=== PATIENT | female | born 2000 | race Hispanic/Latino ===

== ENCOUNTER 2021-04-21 09:25 | Emergency (ER) | payer OTHER, SELFPAY ==
--- NOTE | ~2021-04-21 | XR_ITS ---
EXAMINATION: XR chest 2V DATE: 04/21/2021 09:51 INDICATION: Chest pain. TECHNIQUE: PA and lateral views of the chest were obtained. COMPARISON: None FINDINGS: The lungs are clear with no focal airspace opacities, pulmonary edema, pleural effusion or pneumothor ax. The cardiomediastinal silhouette is normal. Visualized bones and soft tissues are unremarkable. IMPRESSION: 1. Normal chest radiograph. Reviewed, dictated and finalized at location A. [employer] SERVICE MANAGER IMPRESSION: 1. Normal chest radiograph.
--- NOTE | 2021-04-21 09:31 | ECG_ITS ---
Measurements Intervals [place] Rate: 67 P: 48 ID: [id number] QRS: 72 QRSD: 78 T: 29 QT: 350 QTc: 370 Interpretive Statements SINUS RHYTHM INCOMPLETE RIGHT BUNDLE BRANCH BLOCK BASELINE ARTIFACT- II, III, AVF BORDERLINE ECG Electronically Signed On 04-21-2021 14:23:24 [employer] by Hola Strange D.O.
[2021-04-21 09:48] VITALS: BP 120/72; PULSE 89; RESP 18; TEMP 36.6; O2SAT 98
--- NOTE | 2021-04-21 09:50 | ED.CHESTPAIN ---
HPI - Chest Pain General Chief Complaint: Chest Pain Stated Complaint: chest pain and arm hurts Time Seen by Provider: 04/21/21 09:34 Source: patient Mode of arrival: ambulatory Limitations: no limitations History of Present Illness HPI narrative: Patient is 20-year-old female presented with chief complaint of left-sided chest pain that began yesterday at 3 PM while she was working. Patient reports that the pain is sharp in nature but waxes and wanes in intensity. Patient reports that when she lays down and rest the pain seems to be better. Patient reports last night she began having pain in her left arm and became more concerned. Patient reported the pain in her arm presents with movement. Patient reports she has not taken any medications to try to alleviate her discomfort. Patient has a history of hypertension, diabetes, MD, stroke, chest trauma. Patient reports having some anxiety in the past. Patient denies chance of . Patient denies tenderness ambulating with MD or stroke. Related Data Home Medications Medication Instructions Recorded Confirmed No Home Medications 04/21/21 04/21/21 Allergies Allergy/AdvReac Type Severity Reaction Status Date / Time No Known Allergies Allergy Verified 04/21/21 09:32 Review of Systems Review of Systems: CONSTITUTIONAL: Denies fever, chills, or sweats. EYES: Denies visual changes, redness, or discharge. ENT: Denies rhinorrhea, congestion, sore throat, or otalgia. CARDIOVASCULAR: Reports chest pain, denies palpitations, or edema. RESPIRATORY: Denies cough or dyspnea. GASTROINTESTINAL: Denies abdominal pain, nausea, vomiting, or diarrhea. GENITOURINARY: Denies dysuria or hematuria. SKIN: Denies rash or itching. MUSCULOSKELETAL: Reports left arm pain denies back pain, joint pain, or myalgia. NEUROLOGIC: Denies headache, numbness, dizziness, or weakness. PSYCHIATRIC: Denies anxiety or depression. Exam Narrative: GENERAL: Well-appearing, well-nourished, and in no acute distress. HEAD: Normocephalic, atraumatic. EYES: PERRLA and EOMI. CHEST: Pain with palpation of left pectoral and shoulder- triggers arm pain, but states chest pain is different. Clear to auscultation. No respiratory distress. No wheezes rales or rhonchi HEART: Regular rate and rhythm. Normal peripheral pulses. EXTREMITIES: Normal range of motion. No edema. SKIN: Warm, dry, no rash. NEURO: No focal deficits. Alert and oriented x3. Speech clear and appropriate. Gait is steady. PSYCH: Normal mood and affect. Course Vital Signs Vital signs: Vital Signs Temperature 97.9 F 04/21/21 09:48 Pulse Rate 89 04/21/21 09:48 Respiratory Rate 18 04/21/21 09:48 Blood Pressure 120/72 04/21/21 09:48 Pulse Oximetry 98 04/21/21 09:48 Temperature 97.9 F 04/21/21 09:48 Pulse Rate 80 04/21/21 13:30 Respiratory Rate 18 04/21/21 13:30 Blood Pressure 103/68 04/21/21 13:30 Pulse Oximetry 99 04/21/21 13:30 MDM - Chest Pain MDM Narrative Medical decision making narrative: Patient is smiling and resting comfortably in the room. She has not had any increases episodes of pain. Patient reports her symptoms have improved. Patient vital signs are stable, lab work is insignificant. Troponin does troponin have been negative. EKG is normal sinus rhythm. Patient's heart score is low. Patient presents patient suggest more of a musculoskeletal component however patient has been instructed to follow-up with primary care to improve investigation. Patient will be discharged for follow-up with her primary care. Patient instructed to return to emergency department she develop any emergent symptoms. Patient states she is ready to be discharged home and denies any other needs or concerns. Differential Diagnosis Differential diagnosis: Likely fracture of rib, pneumothorax, atypical chest pain, st elevation myocardial infarction, costochondritis, chest pain, biliary colic and other (Anxiety) Lab Data
[2021-04-21 09:55] LABS: Basophils Absolute Auto 0.1 K/mm3 (0.0-0.1); Basophils Percent Auto 0.7 % (0.2-1.2); Eosinophils Absolute Auto 0.4 K/mm3 (0-0.3); Eosinophils Percent Auto 4.3 % (0-4.4); Hematocrit 37.1 % (37.0-47.0); Hemoglobin 12.5 g/dL (12.0-15.0); Immature Granulocyte Absolute 0.03 K/mm3 (0.00-0.031); Immature Granulocyte Percent A 0.4 % (0-0.5); Lymphocytes Absolute Auto 3.18 K/mm3 (0.9-3.2); Lymphocytes Percent Auto 39.4 % (18.3-44.2); Mean Corpuscular HGB Conc 33.7 g/dl (32-36); Mean Corpuscular Hemoglobin 27.7 pg (26-34); Mean Corpuscular Volume 82.3 fl (80-100); Mean Platelet Volume 9.3 fl (7.4-10.4); Monocytes Absolute Auto 0.6 K/mm3 (0.1-0.6); Monocytes Percent Auto 6.8 % (2.6-8.5); Neutrophils Absolute Auto 3.9 K/mm3 (1.3-6.7); Neutrophils Percent Auto 48.4 % (45.5-73.1); Platelet Count Result 270 k/mm3 (150-375); Red Blood Count 4.51 M/mm3 (4.2-5.4); Red Cell Distribution Width 12.5 % (11.5-14.5); White Blood Count 8.1 K/mm3 (4.5-10.0)
[2021-04-21 10:00] LABS: Alanine Aminotransferase 13 U/L (4-35); Albumin Level 4.6 g/dL (3.5-5.1); Alkaline Phosphatase 53 U/L (38-126); Anion Gap 9 mmol/L (8-16); Aspartate Amino Transferase 27 U/L (14-36); Bilirubin,Total 0.4 mg/dL (0.2-1.3); Blood Urea Nitrogen 12 mg/dL (7-17); Calcium 9.2 mg/dL (8.4-10.2); Carbon Dioxide 23 mmol/L (22-30); Chloride 104 mmol/L (98-107); Estimated CRCL calculation 91 ml/min; Estimated Glomerular Filt Rate > 60; Glucose 92 mg/dL (65-110); Sodium 136 mmol/L (137-145)
[2021-04-21] MEDS: ASPIRIN 81 MG CHEWABLE TABLET 324 MG PO (10:09)
[2021-04-21 10:11] LABS: Troponin I < 0.012 ng/mL (0.000-0.034)
[2021-04-21 13:19] LABS: Troponin I < 0.012 ng/mL (0.000-0.034)
[2021-04-21] MEDS: KETOROLAC 15 MG/ML VIAL (*BKC) IV PUSH (13:23)
[2021-04-21 13:30] VITALS: BP 103/68; PULSE 80; RESP 18; O2SAT 99
== END 2021-04-21 13:33 | disposition home or self-care (01) ==
PROVIDERS: Emergency Provider Emergency Medicine; PCP Pediatrics
DX: R07.89 Other chest pain (principal); I45.10 Unspecified right bundle-branch block
CPT/HCPCS: 36415; 71046; 80053; 81025; 84484; 85025; 93005; 96374; 99284; A9270; J1885

== ENCOUNTER 2022-05-20 16:09 | Emergency (ER) | payer OTHER, SELFPAY ==
[2022-05-20 16:18] VITALS: BP 119/71; PULSE 110; RESP 20; TEMP 36.9; O2SAT 98
--- NOTE | 2022-05-20 18:20 | ED.SKABFB ---
HPI - Skin/Abscess/Foreign Bdy General Chief complaint: Skin/Abscess/Foreign Body Stated complaint: cyst on low back that is leaking Time Seen by Provider: 05/20/22 18:08 History of Present Illness HPI narrative: Patient is a 21-year-old female here for evaluation of pain swelling and drainage at her gluteal cleft. Patient states that the swelling came up about a week ago. She was seen in the ED at [facility] and was diagnosed with pilonidal cyst. She was told that the cyst was not ready to be drained yet, and therefore she was sent home with doxycycline and pain medicine. Patient states that the cyst started draining spontaneously today and her pain acutely increased, which prompted ED evaluation. She denies any fevers, chills, nausea, vomiting, diarrhea or constipation. Denies history of pilonidal cyst. Related Data Home Medications Medication Instructions Recorded Confirmed No Home Medications 04/21/21 04/21/21 Allergies Allergy/AdvReac Type Severity Reaction Status Date / Time No Known Allergies Allergy Verified 04/21/21 09:32 Review of Systems Review of Systems: Gen: Denies fevers or chills Eyes: Denies eye pain or visual change ENT: Denies congestion Respiratory: Denies shortness of breath or cough CV: Denies chest pain or palpitations GI: Denies abdominal pain nausea, emesis or diarrhea denies burning, urgency, frequency or hematuria Musculoskeletal: Denies back pain or muscle pain Neuro: Denies numbness, tingling, weakness or focal weakness Skin: Reports pain redness and swelling to gluteal cleft Except as documented, all other systems reviewed and negative Exam Narrative: Gen: Alert, oriented, tearful Eyes: EOMI, no icterus Pulm: Respirations even and unlabored, symmetric thorax expansion, no audible stridor or visible cyanosis GI: No distension, no voluntary/involuntary guarding : Patient has a 3 x 3 cm area of fluctuance, induration to the left gluteal cleft that is tender to palpation with overlying erythema and warmth. There is no spontaneous drainage noted. Neuro: AOx4, moves all extremities without apparent difficulty or weakness, follows commands Skin: Refer to section Psych: Normal mood/affect, insight/judgement good, adequate fund of knowledge, recent/remote memory intact Course Vital Signs Vital signs: Vital Signs Temperature 98.5 F 05/20/22 16:18 Pulse Rate 110 H 05/20/22 16:18 Respiratory Rate 20 05/20/22 16:18 Blood Pressure 119/71 05/20/22 16:18 Pulse Oximetry 98 05/20/22 16:18 Oxygen Delivery Room Air 05/20/22 16:18 Temperature 98.4 F 05/20/22 20:30 Pulse Rate 92 05/20/22 20:30 Respiratory Rate 18 05/20/22 20:30 Blood Pressure 115/72 05/20/22 20:30 Pulse Oximetry 100 05/20/22 20:30 Oxygen Delivery Room Air 05/20/22 16:18 Procedures Abscess I/D other: Date of Incision: 05/20/22 Time of Incision: 19:59 Local Anesthetic: lidocaine 1% Amount of anesthesia used (mL): 2 Technique: incised with #11 blade and probed loculations Amount of fluid expressed (mL): 10 Irrigation: Yes Packing used?: plain I&D Results: Pus and Blood MDM - Skin/Abscess/Foreign Bdy MDM Narrative Medical decision making narrative: 21-year-old female here for evaluation of a large pilonidal cyst that showed up about a week ago, no better after outpatient antibiotic therapy. She is uncomfortable in appearance but nontoxic, vital signs are normal aside from slight tachycardia that resolved. The pilonidal cyst was drained in the ED and packing was placed. Patient tolerated procedure well. She be discharged home to continue her antibiotics, outpatient follow-up with PCP. Return precautions discussed and she voiced understanding. Discharge Plan Discharge Clinical Impression: Pilonidal abscess Patient Disposition: Home, Self-Care Condition: Stable Instructions: Antibiotic Form, Edilberto
[2022-05-20] MEDS: LIDOCAINE/PRILOCAINE CREAM 2.5-2.5% TUBE 1 EACH TOPICAL (19:02)
[2022-05-20] MEDS: HYDROcodone/acetaminophen (*CRX) 5-325 MG TABLET 1 TAB PO (19:03)
[2022-05-20 20:30] VITALS: BP 115/72; PULSE 92; RESP 18; TEMP 36.9; O2SAT 100
== END 2022-05-20 20:35 | disposition home or self-care (01) ==
PROVIDERS: Emergency Provider Physician Assistant; PCP Family Medicine
DX: L05.01 Pilonidal cyst with abscess (principal)
CPT/HCPCS: 10080; 99283; A9270

== ENCOUNTER 2025-04-04 23:59 | Emergency (ER) | payer SELFPAY ==
--- NOTE | ~2025-04-04 | XR_ITS ---
Examination: XR chest 2V Clinical History: URI Comparison: 04/21/2021 Technique: PA and Lateral Findings: Cardiomediastinal silhouette normal size and configuration. Lungs clear. No acute bony abnormality. IMPRESSION: 1. No acute cardiopulmonary findings. Reviewed, dictated and finalized at location R. MIXER
--- NOTE | 2025-04-05 03:16 | ED_ITS ---
HPI - URI/Sore Throat General Chief Complaint: Upper Respiratory Infection Stated Complaint: SOB; cough x2 weeks Time Seen by Provider: 04/05/25 00:17 Source: patient and family Mode of arrival: ambulatory Limitations: no limitations History of Present Illness HPI Narrative: 24-year-old female presents with shortness of breath a cough past 2 weeks. She denies any sick contacts. No fevers or chills. The cough had been dry at 1st then recently become bit productive phlegm. She has experienced some post- tussive emesis. She has been traveling [id number] cough medicine at home using honey and drinking tea. She denies any edema. She will briefly experience chest pain headache when she coughs but not otherwise. She does occasionally vape sometimes. Denies any underlying respiratory conditions although there had been question 1 point. She prescribed an albuterol inhaler briefly by her PCP given some findings but then ultimately had PFTs performed and noted that they were normal. Related Data Allergies Allergy/AdvReac Type Severity Reaction Status Date / Time No Known Allergies Allergy Verified 04/21/21 09:32 [facility] Past Medical History Medical History Atypical chest pain Pilonidal abscess Social History Social History Smoking status: Current some day smoker Tobacco type: e-cigarettes/vaping Living arrangements: with family Additional living arrangements comments: parents Exam 2 Narrative: GENERAL: Well-appearing, well-nourished, and in no acute distress. HEAD: Normocephalic, atraumatic. EYES: Non injected, non icteric ENT: Nares clear, no rhinorrhea or epistaxis. Gross auditory acuity intact. NECK: Supple. No meningismus. CHEST: Speaking in full sentences. No respiratory distress. Lungs with diffuse coarse breath sounds expiratory wheezes on auscultation. No appreciable consolidation. HEART: Regular rate and rhythm. . ABDOMEN: Soft, nondistended. No rigidity or guarding. Not peritoneal EXTREMITIES: Normal range of motion. No lower extremity edema. SKIN: Warm, dry, no rash. NEURO: No focal deficits. Alert and oriented. Answering questions. Following commands. Normal speech without aphasia or dysarthria. PSYCH: Normal mood and affect. Course Vital Signs Vital signs: Vital Signs Pulse Rate 83 04/05/25 03:40 Respiratory Rate 18 04/05/25 03:40 Temperature 98.4 F 04/05/25 04:32 Pulse Rate 88 04/05/25 06:27 Respiratory Rate 20 04/05/25 04:14 Blood Pressure 100/86 04/05/25 06:58 Pulse Oximetry 95 04/05/25 06:27 [facility] Narrative Medical decision making narrative: Patient presents with shortness of breath and a cough for the past 2 weeks. In the emergency department they are afebrile with vital signs that show mild hypoxia as well as initially normal HR and then borderline tachycardia and tachycardic on EKG. Will order dimer. For her wheezes, will order albuterol nebulized treatment. Will also order 500cc IV fluids. Normal renal function. Mild hyponatremia which had been seen previously. Abnormalities on the differential but patient is without anemia, thrombocytopenia /thrombocytosis, or leukocytosis. Viral swab negative. D dimer within normal limits. Patient is reassessed at 7:40 a.m.. On auscultation she no longer has wheezes. She is resting comfortably. She is saturating appropriately on room air. Stable for discharge. Prescribed a combination of [id number] analgesics/antipyretics medications as well as Tessalon Perles, Cepacol lozenges, and albuterol inhaler should she experience shortness of breath with her without wheezing again in the future. Advised follow-up with primary care physician. Discussed rest and supportive care. Differential Diagnosis Differential Diagnosis: Acute viral syndrome, bronchitis, pneumonia ,ACS, pneumothorax Medical Records I have reviewed the following patient records and this information was taken into consideration when formulating the assessment and plan.: previous ER visits Lab Data [facility] Lab Attestation statement: I personally reviewed the patient's lab results. 04/05/25 04:10 04/05/25 04:10 Labs: Lab Results 04/05/25 04/05/25 04/05/25 Range/Units 03:19 04:10 06:51 WBC 8.6 (4.5-10.0) K/mm3 RBC 4.51 (4.2-5.4) M/mm3 Hgb 12.6 (12.0-15.0) g/dL Hct 37.4 (37.0-47.0) % MCV 82.9 (80-100) fl MCH 27.9 (26-34) pg MCHC 33.7 (32-36) g/dl RDW 12.4 (11.5-14.5) % Plt Count 293 (150-375) k/mm3 MPV 9.2 (7.4-10.4) fl Immature Gran % (Auto) 0.6 H (0-0.5) % Neut % (Auto) 42.0 L (45.5-73.1) % Lymph % (Auto) 37.6 (18.3-44.2) % Dawson % (Auto) 7.3 (2.6-8.5) % Eos % (Auto) 11.7 H (0-4.4) % Baso % (Auto) 0.8 (0.2-1.2) % Lymph # (Auto) 3.24 H (0.9-3.2) K/mm3 Dawson # (Auto) 0.6 (0.1-0.6) K/mm3 Eos # (Auto) 1.0 H (0-0.3) K/mm3 Baso # (Auto) 0.1 (0.0-0.1) K/mm3 Abs Immat Gran (auto) 0.05 H (0.00-0.031) K/mm3 Absolute Neuts (auto) 3.6 (1.3-6.7) K/mm3 Absolute Nucleated RBC 0.000 (0.0-0.012) K/mm3 Nucleated RBC % 0.0 (0.0-0.2) % D-Dimer < 0.27 (<0.48) ug/mL Sodium 136 L (137-145) mmol/L Potassium 4.1 (3.4-5.0) mmol/L Chloride 107 (98-107) mmol/L Carbon Dioxide 22 (22-30) mmol/L Anion Gap 7 (4-12) mmol/L BUN 12 (7-17) mg/dL Creatinine 0.65 L (0.7-1.0) mg/dL Estim Creat Clear Calc Not Reportable Estimated GFR > 60 (59 - ) Glucose 93 (65-110) mg/dL Calcium 8.7 (8.4-10.2) mg/dL POC Urine HCG, Qual Negative (Negative) Influenza A (RT-PCR) Negative (Negative) Influenza B (RT-PCR) Negative (Negative) RSV (RT-PCR) Negative (Negative) SARS-CoV-2 RNA (RT-PCR) Negative (Negative) Imaging Data Attestation: I personally reviewed and interpreted this imaging study as follows: My impression: Chest x-ray without intrathoracic process on my independent interpretation Radiologist's impression: ITS Impressions Chest X-Ray 04/05/25 06:22 IMPRESSION: 1. No acute cardiopulmonary findings. ECG Data EKG #1: Attestation: I personally reviewed and interpreted this ECG as follows: ECG completion date: 04/05/25 ECG completion time: 04:26 Interpretation: Sinus tachycardia at a rate of 108 beats per minute. IN interval 134. QRS 90. QT /QTC 326/390. Good R-wave progression across the precordial leads. T- wave inversion in 3 but upright in contiguous inferior leads. No T-wave inversions in precordial leads. Discharge Plan Discharge Clinical Impression: Shortness of breath, Cough, Wheezes Patient Disposition: Home Condition: Stable Instructions: Antibiotic Form, Acute Cough (ED), Wheezing (ED), Shortness of Breath (ED) Additional Instructions: As we discussed, no evidence of pneumonia. Your symptoms are consistent with bronchitis. No role for antibiotics. This is typically viral although you tested negative for COVID, influenza a, influenza B, and RSV. Rest and maintain your hydration. The medications prescribed below may help with your symptoms. Follow-up with primary care physician. Return to the emergency department with any new or worsening symptoms. Acetaminophen/Tylenol (maximum 4000 mg per day) is safe to take with NSAIDs (ibuprofen/Motrin) for pain relief. Patient Language: [place] Prescriptions: New ibuprofen 600 mg tablet 600 mg PO TID PRN (Reason: pain) Qty: 30 0RF acetaminophen 500 mg capsule 1,000 mg PO Q6H PRN (Reason: pain) Qty: 30 0RF benzonatate 100 mg capsule 100 mg PO BID PRN (Reason: cough) Qty: 20 0RF Cepacol Sore Throat-Cough 5-7.5 mg lozenge 1 franchesca PO Q4H PRN (Reason: cough) Qty: 16 0RF albuterol sulfate 90 mcg/actuation HFA aerosol inhaler 1 inh inhalation QID PRN (Reason: shortness of breath or wheezing) Qty: 6.7 0RF Follow-up/Referrals: Jadiel,Thuan Iqbal MD [Non-Staff, Unknown] Stand Alone Forms: Work/School Release IP Time of Disposition: 07:48
[2025-04-05 03:22] LABS: BEDSIDEPREGUCG Negative (Negative)
--- NOTE | 2025-04-05 03:38 | ECG_ITS ---
Test Date: 2025-04-05 04:26:47 Measurements Intervals [place] Rate: 108 P: 48 [place]: 134 QRS: 56 QRSD: 90 T: -1 QT: 326 QTc: 439 Interpretive Statements SINUS TACHYCARDIA INCOMPLETE RIGHT BUNDLE BRANCH BLOCK BORDERLINE ST-T WAVE ABNORMALITY- ANT/INF LEADS ABNORMAL ECG No previous ECG available for comparison Electronically Signed On 04-05-2025 09:05:07 HYDRAMATIC SPECIALIST by Hola Strange D.O.
[2025-04-05 03:40] VITALS: PULSE 83; RESP 18
[2025-04-05] MEDS: ALBUTEROL SULFATE NEB 2.5 MG/3 ML INH INHALATION (03:40)
[2025-04-05 04:07] VITALS: PULSE 84; RESP 18
[2025-04-05 04:14] VITALS: BP 134/74; PULSE 99; RESP 20; O2SAT 93
[2025-04-05] MEDS: BENZONATATE 100 MG CAPSULE PO (04:16)
[2025-04-05] MEDS: BENZOCAINE/MENTHOL (*BKC) 18 EA LOZENGE 1 LOZENGE PO (04:17)
[2025-04-05] MEDS: guaiFENesin/CODEINE (*CRX) 200/20 MG 10 ML SYRUP PO (04:17)
[2025-04-05 04:24] LABS: Hematocrit 37.4 % (37.0-47.0); Hemoglobin 12.6 g/dL (12.0-15.0); Immature Granulocyte Percent A 0.6 % (0-0.5); Lymphocytes Absolute Auto 3.24 K/mm3 (0.9-3.2); Mean Corpuscular HGB Conc 33.7 g/dl (32-36); Mean Corpuscular Hemoglobin 27.9 pg (26-34); Mean Corpuscular Volume 82.9 fl (80-100); Nucleated Red Blood Cells Absolute Auto 0.000 K/mm3 (0.0-0.012); Nucleated Red Blood Cells Perc 0.0 % (0.0-0.2); Platelet Count Result 293 k/mm3 (150-375); Red Blood Count 4.51 M/mm3 (4.2-5.4); White Blood Count 8.6 K/mm3 (4.5-10.0)
[2025-04-05 04:32] VITALS: TEMP 36.9
[2025-04-05 04:36] LABS: Anion Gap 7 mmol/L (4-12); Blood Urea Nitrogen 12 mg/dL (7-17); Calcium 8.7 mg/dL (8.4-10.2); Carbon Dioxide 22 mmol/L (22-30); Chloride 107 mmol/L (98-107); Estimated Glomerular Filt Rate > 60; Glucose 93 mg/dL (65-110); Potassium 4.1 mmol/L (3.4-5.0); Sodium 136 mmol/L (137-145)
[2025-04-05] MEDS: SODIUM CHLORIDE 0.9% IV 500 ML 999 ML IV CONT (04:40)
[2025-04-05 05:09] LABS: Influenza A QL RT-PCR Negative (Negative); Influenza B QL RT-PCR Negative (Negative); RSV RNA, RT-PCR Negative (Negative); SARS-CoV-2 RNA PCR Negative (Negative)
[2025-04-05 06:27] VITALS: PULSE 88; O2SAT 95
[2025-04-05 06:58] VITALS: BP 100/86
== END 2025-04-05 08:49 | disposition home or self-care (01) ==
PROVIDERS: Emergency Provider Student in an Organized Health Care Education/Training Program
DX: R06.02 Shortness of breath (principal); R05.9 Cough, unspecified; R06.2 Wheezing; R00.0 Tachycardia, unspecified; Z20.822 Contact with and (suspected) exposure to COVID-19
CPT/HCPCS: 36415; 71046; 80048; 81025; 85025; 85380; 87637; 93005; 94640; 96360; 99283; A9270; J7040